=== PATIENT | male | born 1945 | race Caucasian/White ===

== ENCOUNTER 2016-06-23 13:01 | Emergency (ER) | payer OTHER ==
[~2016-06-23] VITALS: Ht 175.3 cm; Wt 89.0 kg
[~2016-06-23 13:01] MED LIST: ACET325T PO; ASCO500T PO; ASPI81CH CHEW; BUPR1TAB29 PO; CHLO10CA2 PO; DILT180C56 PO; GABA300C5 PO; MAGN400T2 PO; SIMV20TA PO; TERA5CAP3 PO; TRAM50TA PO; TRAZ50TA12 PO; WARF-18 PO; WARF-23 PO
[2016-06-23 13:14] VITALS: BP 101/64; PULSE 61; RESP 17; TEMP 97.9; O2SAT 97
[2016-06-23] MEDS ORDERED: CEPH-460 PO (14:52)
--- NOTE | 2016-06-23 14:52 | PD ---
HPI Chief Complaint: ENT Complaint Time Seen by Provider: 14:47 Travel History International Travel<30 days: No Contact w/Intl Traveler<30days: No Traveled to known affect area: No History of Present Illness HPI This 71-year-old male says he has noted a lump in the right side of his throat for several days. He's had trouble like this in the past that responded well to antibiotics, has been told he had a strep throat. He has some trouble swallowing. It is not getting bigger but it is not resolved in several days. He stopped smoking about a month ago. He has a history of atrial fibrillation. PFSH Past Medical History Hx Anticoagulant Therapy: Yes (COUMADIN) Arthritis: Yes (HIPS) Atrial Fibrillation: Yes Autoimmune Disease: No Blood Disorders: No Anxiety: Yes Depression: No Heart Rhythm Problems: Yes (A-FIB WITH RVR) Cancer: No Cardiac Catheterization: No Cardiovascular Problems: Yes (AFIB) High Cholesterol: Yes Chest Pain: Yes Congestive Heart Failure: No Cirrhosis: Yes (liver cyst) COPD: Yes Diabetes: No Diminished Hearing: Yes Endocrine: No Gastrointestinal Disorders: Yes GERD: Yes Genitourinary: Yes Heparin Induced Thrombocytopen: No Hypertension: Yes Immune Disorder: No Implanted Vascular Access Dvce: Yes Musculoskeletal: Yes (disc problem) Neurologic: No Psychiatric: Yes (anxiety) Reproductive: No Respiratory: Yes (Emphysema ) Myocardial Infarction: No Thyroid Disease: No Past Surgical History Coronary Artery Bypass Graft: No Eye Surgery: Yes (BILAT CATARACT REMOVED) Joint Replacement: Yes (LEFT TOTAL HIP) Other Surgery: Yes Social History Alcohol Use: Yes (LAST DRINK WAS 1 HOUR AGO) Tobacco Use: Yes (1 pk) Substance Use: No Allergies-Medications (Allergen,Severity, Reaction): Coded Allergies: [place] (Verified Allergy, Unknown, PT DENIES ALLERGY, 06/23/16) Reported Meds & Prescriptions Reported Meds & Active Scripts Active Reported Warfarin 2.5 Mg Tab 2.5 Mg PO DAILY Warfarin 5 Mg Tab 5 Mg PO DAILY Trazodone (Trazodone HCl) 50 Mg Tab 50 Mg PO HS Tramadol (Tramadol HCl) 50 Mg Tab 50 Mg PO Q6H PRN Terazosin (Terazosin HCl) 5 Mg Cap 5 Mg PO HS Simvastatin 20 Mg Tab 20 Mg PO DAILY Magnesium Oxide 400 Mg Tab 400 Mg PO DIRECTED Gabapentin 300 Mg Cap 300 Mg PO BID Diltiazem CD 24 HR 180 Mg Caper 180 Mg PO DAILY Chlordiazepoxide (Chlordiazepoxide HCl) 10 Mg Cap 10 Mg PO QID PRN Bupropion HCl ER 12 HR (Bupropion HCl) 150 Mg Tab 150 Mg PO Q12HR Aspirin 81 Mg Chew 81 Mg CHEW DAILY Ascorbic Acid 500 Mg Tab 500 Mg PO Acetaminophen 325 Mg Tab 650 Mg PO Q4-6H PRN Review of Systems General / Constitutional: No: Fever, Chills Eyes: No: Diploplia HENT: Positive: Sore Throat Cardiovascular: No: Chest Pain or Discomfort, Palpitations Respiratory: No: Cough Gastrointestinal: No: Vomiting, Diarrhea Musculoskeletal: No: Myalgias Psychiatric: No: Anxiety Physical Exam Narrative GENERAL: [-] Developed male SKIN: Warm and dry. HEAD: Atraumatic. Normocephalic. EYES: Pupils equal and round. No scleral icterus. No injection or drainage. ENT: No nasal bleeding or discharge. Mucous membranes pink and moist. NECK: Trachea midline. No JVD. He indicates the area of the right sternocleidomastoid mastoid muscle as the site of the lung. I do not feel a lump in this area. I felt inside his mouth where he says the lump was and does not feel anything CARDIOVASCULAR: Regular rate and rhythm. No murmur appreciated. RESPIRATORY: No accessory muscle use. Clear to auscultation. Breath sounds equal bilaterally. GASTROINTESTINAL: Abdomen soft, non-tender, nondistended. Hepatic and splenic margins not palpable. MUSCULOSKELETAL: No obvious deformities. No clubbing. No cyanosis. No edema. NEUROLOGICAL: Awake and alert. No obvious cranial nerve deficits. Motor grossly within normal limits. Normal speech. PSYCHIATRIC: Appropriate mood and affect; insight and judgment normal. Data Data Last Documented VS Vital Signs Date Time Temp Pulse Resp B/P Pulse Ox O2 Delivery O2 Flow Rate FiO2 06/23/16 13:14 97.9 61 17 101/64 97 MDM Medical Decision Making Medical Screen Exam Complete: Yes Emergency Medical Condition: Yes Medical Record Reviewed: Yes Differential Diagnosis Differential includes pharyngitis, Narrative Course Patient states he's had this before and has responded well to antibiotics. I will give him a trial of Keflex however I explained to the patient that this could represent a tumor and that he should follow-up with ENT. He gets his health care through the [facility] Diagnosis Primary Impression: Pharyngitis Qualified Code: J02.9 - Pharyngitis, unspecified etiology Additional Impression: possible neck masS Additional Instructions: Follow-up with ENT doctor Scripts Cephalexin (Keflex)500 Mg Uym952 Mg PO Q6H #40 CAP Ref 0 Prov:Reji Guevara MD 06/23/16 Disposition: 01 DISCHARGE HOME Condition: Stable Reji Guevara MD Jun 23, 2016 14:52
== END 2016-06-23 15:12 | disposition home or self-care (01) ==
LOC: PHEFT 13:01
DX: J02.9 Acute pharyngitis, unspecified (principal); R22.1 Localized swelling, mass and lump, neck; I48.91 Unspecified atrial fibrillation; I10 Essential (primary) hypertension; K21.9 Gastro-esophageal reflux disease without esophagitis; Z79.01 Long term (current) use of anticoagulants
CPT/HCPCS: 99283

== ENCOUNTER 2017-09-19 12:47 | Emergency (ER) | payer OTHER ==
[~2017-09-19] VITALS: Ht 175.3 cm; Wt 100.0 kg
[~2017-09-19 12:47] MED LIST changes: -ACET325T PO; -ASCO500T PO; -ASPI81CH CHEW; -BUPR1TAB29 PO; -CHLO10CA2 PO; -DILT180C56 PO; -MAGN400T2 PO; -SIMV20TA PO; -TERA5CAP3 PO; -TRAM50TA PO; -TRAZ50TA12 PO; -WARF-18 PO
[2017-09-19 12:56] VITALS: BP 131/67; PULSE 79; RESP 16; TEMP 98.6; O2SAT 96
[2017-09-19] MEDS ORDERED: HYDR-3133 PO (13:43)
[2017-09-19] MEDS ORDERED: TRAZ50TA12 PO (13:43)
[2017-09-19] MEDS ORDERED: GABA300C5 PO (13:43)
[2017-09-19] MEDS ORDERED: BACL10TA PO (13:43)
[2017-09-19] MEDS ORDERED: TRAM50TA PO (13:43)
[2017-09-19] MEDS ORDERED: DILT0.05 PO (13:43)
[2017-09-19] MEDS ORDERED: TYLE325T PO (13:43)
[2017-09-19] MEDS ORDERED: COUM5TAB PO (13:43)
[2017-09-19] MEDS ORDERED: ALBUAER3 INH (13:43)
[2017-09-19] MEDS ORDERED: LACT10SO PO (13:43)
[2017-09-19] MEDS ORDERED: OMEP20TA93 PO (13:43)
[2017-09-19] MEDS ORDERED: SIMV20TA PO (13:43)
--- NOTE | 2017-09-19 14:03 | RADRPT ---
EXAM DATE/TIME: 09/19/2017 13:37 [facility] COMPARISON: No previous studies available for comparison. INDICATIONS : Fall two weeks ago. Pain down left ribs and across lower back. MEDICAL HISTORY : None. SURGICAL HISTORY : Left hip replacement. ENCOUNTER: Initial ACUITY: 2 weeks PAIN SCORE: 8/10 LOCATION: Left Ribs FINDINGS: PA and lateral views of the chest demonstrate the lungs to be symmetrically aerated without evidence of mass, infiltrate or effusion. Minimal atelectasis or scarring above the left hemidiaphragm. The c ardiomediastinal contours are unremarkable. Cannot exclude subtle rib fractures laterally in the left lower chest. CONCLUSION: 1. Except for some linear atelectasis or scarring above the left hemidiaphragm, the lungs are clear. 2. Cannot exclude subtle rib fractures laterally in the left chest. If the patient has point tenderne ss in this location, a dedicated rib series could be obtained Shabbir Jordan MD on September 19, 2017 at 13:57 Board Certified Radiologist. This report was verified electronically.
[2017-09-19 14:14] LABS: AUTOMATED NEUTROPHIL # 5.7 TH/MM3 (1.8-7.7); BASOPHIL % 0.4 % (0.0-2.0); EOSINOPHIL # 0.2 TH/MM3 (0-0.4); EOSINOPHIL % 2.5 % (0.0-4.0); HEMATOCRIT 47.7 % (39.0-51.0); HEMOGLOBIN 15.8 GM/DL (13.0-17.0); LYMPH % 29.8 % (9.0-44.0); LYMPHOCYTE # 2.8 TH/MM3 (1.0-4.8); MEAN CELL VOLUME 93.1 FL (80.0-100.0); MEAN CORPUSCULAR HEMOGLOBIN 30.8 PG (27.0-34.0); MEAN CORPUSCULAR HGB CONC 33.1 % (32.0-36.0); MONO % 7.2 % (0.0-8.0); MONOCYTE # 0.7 TH/MM3 (0-0.9); NEUT % 60.1 % (16.0-70.0); PLATELET COUNT 257 TH/MM3 (150-450); RED BLOOD COUNT 5.13 MIL/MM3 (4.50-5.90); RED CELL DISTRIBUTION WIDTH 13.2 % (11.6-17.2); WHITE BLOOD COUNT 9.4 TH/MM3 (4.0-11.0)
[2017-09-19 14:31] LABS: CHLORIDE 108 MEQ/L (98-107); SODIUM (NA) 139 MEQ/L (136-145)
[2017-09-19 14:35] LABS: CALCIUM 8.9 MG/DL (8.5-10.1); INTERNATIONAL NORMALIZED RATIO 1.8 RATIO; PROTHROMBIN TIME - PATIENT 18.4 SEC (9.8-11.6)
[2017-09-19 14:36] LABS: ALBUMIN 3.8 GM/DL (3.4-5.0); BICARBONATE 26.2 MEQ/L (21.0-32.0); BLOOD UREA NITROGEN 9 MG/DL (7-18); GLUCOSE,RANDOM 109 MG/DL (74-106)
[2017-09-19 14:39] LABS: ALT (GPT) 34 U/L (12-78); AST (GOT) 26 U/L (15-37); CREATININE 0.91 MG/DL (0.60-1.30); GLOMERULAR FILTRATION RATE 82 ML/MIN (>89)
[2017-09-19 14:40] LABS: TOTAL BILIRUBIN ADULT 0.2 MG/DL (0.2-1.0); TOTAL PROTEIN 7.8 GM/DL (6.4-8.2)
[2017-09-19 14:42] LABS: ALKALINE PHOSPHATASE 94 U/L (45-117)
[2017-09-19] MEDS ORDERED: IOHEXOL 350 MG/ML 10 ML VIAL (for RAD DIAG) IVCONTRAST ONE (15:15)
--- NOTE | 2017-09-19 15:31 | PD ---
HPI Chief Complaint: Fall Time Seen by Provider: 13:24 Travel History International Travel<30 days: No Contact w/Intl Traveler<30days: No Traveled to known affect area: No History of Present Illness HPI This is a 72-year-old male who presents to the emergency department having had a fall 2 weeks ago where he landed on his left side after tripping on a stick. He reports that since then he has been having some left rib pain, constant, severe, worse with deep breaths associated with some shortness of breath. He also has pain in his flank and he was concerned he may have some internal bleeding. He is on Coumadin. About a week ago he had a prostate procedure for which he held his Coumadin. He was prescribed Percocet which he was taking and this was helping his pain that he is back on Coumadin and he is out of the Percocet and his pain is worsening so he came to the emergency department. He did not hit his head when he fell. PFSH Past Medical History Hx Anticoagulant Therapy: Yes (WARFARIN) Arthritis: Yes (HIPS) Atrial Fibrillation: Yes Autoimmune Disease: No Blood Disorders: Yes (coumadin) Anxiety: Yes Depression: No Heart Rhythm Problems: Yes (A-FIB WITH RVR) Cancer: No Cardiac Catheterization: No Cardiovascular Problems: Yes (A-FIB) High Cholesterol: Yes Chest Pain: Yes Congestive Heart Failure: No Cirrhosis: Yes (liver cyst) COPD: Yes Diabetes: No Diminished Hearing: Yes Endocrine: No Gastrointestinal Disorders: Yes GERD: Yes Genitourinary: Yes Heparin Induced Thrombocytopen: No Hypertension: Yes Immune Disorder: No Implanted Vascular Access Dvce: Yes Musculoskeletal: Yes (disc problem) 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) Psychiatric: Yes (anxiety) Reproductive: No Respiratory: Yes (EMPHYSEMA) Myocardial Infarction: No Thyroid Disease: No Influenza Vaccination: Yes ?: Not Past Surgical History Coronary Artery Bypass Graft: No Eye Surgery: Yes (BILAT CATARACT REMOVED) Genitourinary Surgery: Yes (prostate surgery) Joint Replacement: Yes (LEFT TOTAL HIP) Other Surgery: Yes Social History Alcohol Use: No Tobacco Use: No (QUIT 04/2016) Substance Use: No Allergies-Medications (Allergen,Severity, Reaction): Coded Allergies: strawberry (Unverified Allergy, Unknown, PT DENIES ALLERGY, 09/19/17) Reported Meds & Prescriptions Reported Meds & Active Scripts Active Reported Lactulose Liq (Lactulose) 10 Gm/15 Ml Soln 30 Ml PO Q6H PRN Hydroxyzine HCl 25 Mg Tab 25 Mg PO QID Baclofen 10 Mg Tab 10 Mg PO Q8HR Diltiazem ER 24 HR 180 Mg Kurt 180 Mg PO DAILY Gabapentin 300 Mg Cap 300 Mg PO TID Omeprazole 20 Mg Tab 20 Mg PO DAILY Simvastatin 20 Mg Tab 20 Mg PO DAILY Tramadol (Tramadol HCl) 50 Mg Tab 50 Mg PO Q8H PRN Trazodone (Trazodone HCl) 50 Mg Tab 50 Mg PO HS Coumadin (Warfarin) 5 Mg Tab 5 Mg PO DAILY Proair Hfa 8.5 GM Inh (Albuterol Sulfate) 90 Mcg/Act Aer 1 Puff INH Q4H PRN 108 mcg/actuation Tylenol (Acetaminophen) 325 Mg Tab 650 Mg PO Q6H PRN Warfarin 5 Mg Tab 5 Mg PO DAILY Gabapentin 300 Mg Cap 300 Mg PO BID Review of Systems Except as stated in HPI: all other systems reviewed are Neg Physical Exam Narrative GENERAL:Well appearing, no acute distress SKIN: Focused skin assessment warm and dry. HEAD: Atraumatic. Normocephalic. EYES: Pupils equal and round. No injection or drainage. ENT: Moist mucous membranes NECK: Trachea midline. CARDIOVASCULAR: Irregularly irregular. No murmur appreciated. RESPIRATORY: Clear to auscultation. Breath sounds equal bilaterally. Tender to palpation along the left lower rib cage. GASTROINTESTINAL: Abdomen soft, tender to palpation in the left upper quadrant with no rebound or guarding. MUSCULOSKELETAL: No obvious deformities. NEUROLOGICAL: Awake and alert. No obvious cranial nerve deficits. Moving all extremities. PSYCHIATRIC: Appropriate mood and affect; insight and judgment normal. Data Data Last Documented VS Vital Signs Date Time Temp Pulse Resp B/P (MAP) Pulse Ox O2 Delivery O2 Flow Rate FiO2 09/19/17 13:24 Room Air 09/19/17 12:56 98.6 79 16 131/67 (88) 96 Orders Orders Complete Blood Count With Diff (09/19/17 13:32) Comprehensive Metabolic Panel (09/19/17 13:32) ^ Insert Iv (09/19/17 13:32) Prothrombin Time / Inr (Pt) (09/19/17 13:32) Act Partial Throm Time (Ptt) (09/19/17 13:32) Chest, Pa & Lat (09/19/17 ) Ct Abd/Pel W Iv Contrast(Rout) (09/19/17 ) Iohexol 350 Inj (Omnipaque 350 Inj) (09/19/17 15:15) Labs Laboratory Tests Test 09/19/17 14:00 White Blood Count 9.4 TH/MM3 Red Blood Count 5.13 MIL/MM3 Hemoglobin 15.8 GM/DL Hematocrit 47.7 % Mean Corpuscular Volume 93.1 FL Mean Corpuscular Hemoglobin 30.8 PG Mean Corpuscular Hemoglobin Concent 33.1 % Red Cell Distribution Width 13.2 % Platelet Count 257 TH/MM3 Mean Platelet Volume 8.0 FL Neutrophils (%) (Auto) 60.1 % Lymphocytes (%) (Auto) 29.8 % Monocytes (%) (Auto) 7.2 % Eosinophils (%) (Auto) 2.5 % Basophils (%) (Auto) 0.4 % Neutrophils # (Auto) 5.7 TH/MM3 Lymphocytes # (Auto) 2.8 TH/MM3 Monocytes # (Auto) 0.7 TH/MM3 Eosinophils # (Auto) 0.2 TH/MM3 Basophils # (Auto) 0.0 TH/MM3 CBC Comment DIFF FINAL Differential Comment Prothrombin Time 18.4 SEC Prothromb Time International Ratio 1.8 RATIO Activated Partial Thromboplast Time 33.6 SEC Blood Urea Nitrogen 9 MG/DL Creatinine 0.91 MG/DL Random Glucose 109 MG/DL Total Protein 7.8 GM/DL Albumin 3.8 GM/DL Calcium Level 8.9 MG/DL Alkaline Phosphatase 94 U/L Aspartate Amino Transf (AST/SGOT) 26 U/L Alanine Aminotransferase (ALT/SGPT) 34 U/L Total Bilirubin 0.2 MG/DL Sodium Level 139 MEQ/L Potassium Level 3.7 MEQ/L Chloride Level 108 MEQ/L Carbon Dioxide Level 26.2 MEQ/L Anion Gap 5 MEQ/L Estimat Glomerular Filtration Rate 82 ML/MIN [facility] Medical Decision Making Medical Screen Exam Complete: Yes Emergency Medical Condition: Yes Interpretation(s) Afebrile, no tachycardia, normotensive No leukocytosis Electrolytes are reassuring INR is 1.8 Last 24 hours Impressions Chest X-Ray 09/19/17 0000 Signed Impressions: Service Date/Time: Tuesday, September 19, 2017 13:37 - CONCLUSION: 1. Except for some linear atelectasis or scarring above the left hemidiaphragm, the lungs are clear. 2. Cannot exclude subtle rib fractures laterally in the left chest. If the patient has point tenderness in this location, a dedicated rib series could be obtained Shabbir Jordan MD CT abdomen pelvis: No acute process Differential Diagnosis Splenic injury, rib fracture, retroperitoneal hematoma, pulmonary contusion, pneumothorax Narrative Course This is a 72-year-old male who is on Coumadin who presents to the emergency department having had a fall 2 weeks ago. He has symptoms and physical exam consistent with rib fractures and has evidence of likely rib fractures on chest x-ray. Labs and CT abdomen pelvis are reassuring with no evidence of anemia or hemorrhage. I think patient can safely be discharged with pain control and can follow-up with his primary care physician as an outpatient. Diagnosis Primary Impression: Rib fractures Qualified Codes: S22.42XA - Multiple fractures of ribs, left side, initial encounter for closed fracture Patient Instructions: General Instructions Additional Instructions: If you develop severe chest pain, shortness of breath, sweating, lightheadedness , dizziness or difficulty breathing return to the emergency department immediately. Followup with your primary care physician in 2-3 days if your symptoms are not resolved. Med/Other Pt SpecificInfo: Prescription(s) given Scripts Hydrocodone/Acetaminophen (Hydrocodone-Acetamin 7.5-325) 7.5 Mg-325 Mg Tablet 1 TAB PO Q4-6H Y for PAIN SCALE 4 TO 10, #12 Prov: Yaneli Chapa MD 09/19/17 Disposition: 01 DISCHARGE HOME Condition: Stable Yaneli Chapa MD Sep 19, 2017 15:31
--- NOTE | 2017-09-19 15:49 | RADRPT ---
EXAM DATE/TIME: 09/19/2017 15:08 [facility] COMPARISON: No previous studies available for comparison. INDICATIONS : Fell two weeks ago and complains of left sided pain. IV CONTRAST: 90 cc Omnipaque 350 (iohexol) IV ORAL CONTRAST: No oral contrast ingested. RADIATION DOSE: 21.69 CTDIvol (mGy) MEDICAL HISTORY : Hypercholesterolemia. Gastroesophageal reflux disease. Chronic obstructive pulmonary disease.Hyperten tiffany. A- fibbrillation. Anticoagulant therapy. SURGICAL HISTORY : Hip surgery. ENCOUNTER: Initial ACUITY: 2 weeks PAIN SCALE: 5/10 LOCATION: Left pelvis abdomen TECHNIQUE: Volumetric scanning of the abdomen and pelvis was performed. Using automated exposure control and ad justment of the mA and/or kV according to patient size, radiation dose was kept as low as reasonably achievable to obtain optimal diagnostic quality images. DICOM format image data is available electro nically for review and comparison. FINDINGS: LOWER LUNGS: The visualized lower lungs are clear. LIVER: Homogeneous density without lesion. There is no dilation of the biliary tree. No calcified gallston es. SPLEEN: Normal size without lesion. PANCREAS: Within normal limits. KIDNEYS: Normal in size and shape. There is no mass, stone or hydronephrosis. ADRENAL GLANDS: Within normal limits. VASCULAR: There is no aortic aneurysm. BOWEL/MESENTERY: Multiple colonic diverticula, most prominent in the sigmoid region. No inflammatory changes to sugges t acute diverticulitis. No evidence of bowel dilatation. No free air or free fluid. Appendix within n ormal limits. ABDOMINAL WALL: Within normal limits. RETROPERITONEUM: There is no lymphadenopathy. BLADDER: No wall thickening or mass. REPRODUCTIVE: Within normal limits. INGUINAL: 4 cm fat-containing left inguinal hernia. MUSCULOSKELETAL: Moderate degenerative findings of the lumbar spine. Left total hip prosthesis. 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 No evidence of subchondral bony collapse. CONCLUSION: 1. No acute findings in the abdomen and pelvis. 2. Prominent degenerative findings lumbar spine. 3. 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 No subchondral bony collapse. 4. Colonic diverticulosis. Earnest Khan MD on September 19, 2017 at 15:40 Board Certified Radiologist. This report was verified electronically.
[2017-09-19] MEDS ORDERED: HYDR-3580 PO (16:00)
== END 2017-09-19 16:32 | disposition home or self-care (01) ==
LOC: PHED 12:47
DX: S22.42XA Multiple fractures of ribs, left side, initial encounter for closed fracture (principal); E78.00 Pure hypercholesterolemia, unspecified; I10 Essential (primary) hypertension; I48.91 Unspecified atrial fibrillation; K21.9 Gastro-esophageal reflux disease without esophagitis; J44.9 Chronic obstructive pulmonary disease, unspecified; W18.09XA Striking against other object with subsequent fall, initial encounter; Z79.01 Long term (current) use of anticoagulants; Z87.891 Personal history of nicotine dependence
CPT/HCPCS: 71046; 74177; 80053; 85025; 85610; 85730; 99285; Q9967